=== PATIENT | male | born 1960 | race American Indian/Alaskan Native ===

== ENCOUNTER 2017-04-16 10:16 | Emergency (ER) | payer BC ==
[2017-04-16 10:26] VITALS: BP 172/117; PULSE 96; RESP 16; TEMP 98.6; O2SAT 98
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
== END 2017-04-16 11:14 | disposition home or self-care (01) ==
LOC: H.ER 10:16
DX: S20.319A Abrasion of unspecified front wall of thorax, initial encounter (principal); Y04.0XXA Assault by unarmed brawl or fight, initial encounter; Y92.89 Other specified places as the place of occurrence of the external cause